=== PATIENT | female | born 1990 ===

== ENCOUNTER 2022-06-23 15:15 | Outpatient (CLI) | payer OTHER | END 2022-06-23 16:45 | disposition home or self-care (01) | LOC: PRENATAL 15:15 | PROVIDERS: ATTEND Obstetrics & Gynecology Maternal & Fetal Medicine | DX: O36.80X0 Pregnancy with inconclusive fetal viability, not applicable or unspecified (principal); Z36 Encounter for antenatal screening of mother; Z3A.14 14 weeks gestation of pregnancy ==

== ENCOUNTER 2022-07-31 13:12 | Outpatient (CLI) | payer OTHER | END 2022-07-31 14:25 | disposition home or self-care (01) | LOC: PRENATAL 13:12 | PROVIDERS: ATTEND Obstetrics & Gynecology Maternal & Fetal Medicine | DX: O35.9XX0 Maternal care for (suspected) fetal abnormality and damage, unspecified, not applicable or unspecified (principal); O35.3XX0 Maternal care for (suspected) damage to fetus from viral disease in mother, not applicable or unspecified; Z3A.20 20 weeks gestation of pregnancy ==